=== PATIENT | male | born 1965 | race Caucasian/White ===

== ENCOUNTER 2016-07-05 10:52 | Day surgery (SDC) | payer OTHER ==
--- NOTE | ~2016-07-05 | EGD ---
EGD REPORT [facility] [address] [address] NAME: TRUMAN VORA : [birth year] STATUS : REG [facility] PAT#: [id number] AGE: 50 ADM/REG DATE : 07/05/16 MR#: [id number] REPORT SERV DATE: 07/05/16 DICTATED BY: JADE WADDELL DATE: 07/05/16 REPORT STATUS : Draft TRANSCRIBED BY: [employer] DATE: 07/05/16 [facility] Patient Name: Truman Vora Date of : 1965 Attending MD: JADE WADDELL, Procedure Date No Time: 07/05/2016 Procedure: Colonoscopy Indications: Screening for colorectal malignant neoplasm Referring MD: RIOS MADRIGAL Medicines: Monitored Anesthesia Care Complications: No immediate complications. Estimated blood loss: None. Procedure: Pre-Anesthesia Assessment: - ASA Grade Assessment: II - A patient with mild systemic disease. After I obtained informed consent, the scope was passed under direct vision. Throughout the procedure, the patient's blood pressure, pulse, and oxygen saturations were monitored continuously. The CF [id number] was introduced through the anus and advanced to the cecum, identified by appendiceal orifice and ileocecal valve. The colonoscopy was performed without difficulty. The patient tolerated the procedure well. The quality of the bowel preparation was good. Findings: The perianal and digital rectal examinations were normal. A sessile polyp was found in the transverse colon. The polyp was 5 mm in size. The polyp was removed with a hot snare. Resection and retrieval were complete. Verification of patient identification for the specimen was done. Estimated blood loss was minimal. The retroflexed view of the distal rectum and anal verge was normal and showed no anal or rectal abnormalities. The exam was otherwise without abnormality on direct and retroflexion views. Impression: - One 5 mm polyp in the transverse colon. Resected and retrieved. - The examination was otherwise normal on direct and retroflexion views. Recommendation: - Patient has a contact number available for emergencies. The signs and symptoms of potential delayed complications were discussed with the patient. Return to normal activities tomorrow. Written discharge instructions were provided to the patient. EGD REPORT [address] [address] NAME: TRUMAN VORA : [birth year] STATUS : REG [facility] PAT#: [id number] AGE: 50 ADM/REG DATE : 07/05/16 MR#: [id number] REPORT SERV DATE: 07/05/16 DICTATED BY: JADE WADDELL DATE: 07/05/16 REPORT STATUS : Draft TRANSCRIBED BY: [employer] DATE: 07/05/16 - Return to previous diet. - Continue present medications. - Await pathology results. - Repeat colonoscopy for surveillance based on pathology results. Procedure Code(s): --- Professional --- 26407, Colonoscopy, flexible, proximal to splenic flexure; with removal of tumor(s), polyp(s), or other lesion(s) by snare technique Diagnosis Code(s): --- Professional --- D12.3, Benign neoplasm of transverse colon Z12.11, Encounter for screening for malignant neoplasm of colon CPT copyright 2013 [employer]. All rights reserved. The codes documented in this report are preliminary and upon taproom attendant review may be revised to meet current compliance requirements. JADE WADDELL, 07/05/2016 12:26 PM Number of Addenda: 0 Note Initiated On: 07/05/2016 11:55 AM [address] [place] [address]
--- NOTE | ~2016-07-05 | EGD ---
EGD REPORT [facility] [address] [address] NAME: TRUMAN VORA : [birth year] STATUS : REG [facility]#: [id number] AGE: 50 ADM/REG DATE : 07/05/16 MR#: [id number] REPORT SERV DATE: 07/05/16 DICTATED BY: JADE WADDELL DATE: 07/05/16 REPORT STATUS : Draft [facility] DATE: 07/05/16 [facility] Patient Name: Truman Vora Date of : 1965 Attending MD: JADE WADDELL, Procedure Date No Time: 07/05/2016 Procedure: Upper GI endoscopy Indications: Heartburn Referring MD: RIOS MADRIGAL Medicines: Monitored Anesthesia Care Complications: No immediate complications. Estimated blood loss: None. Procedure: Pre-Anesthesia Assessment: - ASA Grade Assessment: II - A patient with mild systemic disease. After obtaining informed consent, the endoscope was passed under direct vision. Throughout the procedure, the patient's blood pressure, pulse, and oxygen saturations were monitored continuously. The GIF [id number] was introduced through the mouth, and advanced to the second part of duodenum. The upper GI endoscopy was accomplished without difficulty. The patient tolerated the procedure well. Findings: LA Grade B (one or more mucosal breaks greater than 5 mm, not extending between the tops of two mucosal folds) esophagitis with no bleeding was found 41 cm from the incisors. Biopsies were taken with a cold forceps for histology. Verification of patient identification for the specimen was done. Estimated blood loss was minimal. The exam of the esophagus was otherwise normal. The stomach was normal. The cardia and gastric fundus were normal on retroflexion. The examined duodenum was normal. Impression: - LA Grade B reflux esophagitis. Biopsied. - Normal stomach. - Normal examined duodenum. Recommendation: - Return to previous diet. - Continue present medications. - Use Prilosec (omeprazole) 40 mg PO daily. Procedure Code(s): --- Professional --- 95423, Esophagogastroduodenoscopy, flexible, transoral; with biopsy, single or multiple EGD REPORT [address] [facility] [address] NAME: TRUMAN VORA : [birth year] STATUS : REG [facility]#: [id number] AGE: 50 ADM/REG DATE : 07/05/16 MR#: [id number] REPORT SERV DATE: 07/05/16 DICTATED BY: JADE WADDELL DATE: 07/05/16 REPORT STATUS : Draft TRANSCRIBED BY: [employer] DATE: 07/05/16 Diagnosis Code(s): --- Professional --- K21.0, Gastro-esophageal reflux disease with esophagitis R12, Heartburn CPT copyright 2013 [employer]. All rights reserved. The codes documented in this report are preliminary and upon pharmacy technician assistant review may be revised to meet current compliance requirements. JADE WADDELL, 07/05/2016 12:25 PM Number of Addenda: 0 Note Initiated On: 07/05/2016 11:58 AM Scope Withdrawal Time 0 hours 0 minutes 0 seconds [address] [facility] [place] [address]
[~2016-07-05 10:52] MED LIST: ACET500CAP PO
== END 2016-07-05 23:59 | disposition home or self-care (01) ==
LOC: DMU 10:52
PROVIDERS: Internal Medicine Gastroenterology
PROC: 0DBL8ZX Excision of Transverse Colon, Via Natural or Artificial Opening Endoscopic, Diagnostic (ICD-10-PCS; principal; 2016-07-05 12:30)
PROC: 0DB58ZX Excision of Esophagus, Via Natural or Artificial Opening Endoscopic, Diagnostic (ICD-10-PCS; 2016-07-05 12:30)
DX: Z12.11 Encounter for screening for malignant neoplasm of colon (principal); K63.5 Polyp of colon; K21.0 Gastro-esophageal reflux disease with esophagitis; G47.33 Obstructive sleep apnea (adult) (pediatric)
CPT/HCPCS: 88305